=== PATIENT | female | born 1995 | race Two or more races ===

== ENCOUNTER 2023-05-27 11:26 | Inpatient (IN) | payer MEDICAID ==
[~2023-05-27] VITALS: Ht 175.3 cm; Wt 65.6 kg
[2023-05-27 12:23] LABS: BASOPHILS % (AUTO) 0.4 % (0.0-2.0); EOSINOPHILS % (AUTO) 1.9 % (1.0-6.0); HEMATOCRIT 38.2 % (36-46); HEMOGLOBIN 12.7 g/dL (12.0-16.0); LYMPHOCYTES # (AUTO) 2.2 K/uL (1.0-4.8); LYMPHOCYTES % (AUTO) 24.3 % (22.0-44.0); MEAN CORPUSCULAR HEMOGLOBIN 28.9 pg (26.0-34.0); MEAN CORPUSCULAR HGB CONC 33.1 G/dL (31.0-37.0); MEAN CORPUSCULAR VOLUME 87 fL (80-100); MONOCYTES # (AUTO) 0.5 K/uL (0.1-1.0); MONOCYTES % (AUTO) 5.6 % (2.0-9.0); NEUTROPHILS % (AUTO) 67.8 % (40.0-70.0); PLATELET COUNT (AUTO) 308 K/uL (150-450); RED BLOOD CELL COUNT(AUTO) 4.39 MIL/uL (4.00-5.20); RED CELL DISTRIBUTION WIDTH 15.8 % (11.5-14.5)
[2023-05-27 12:29] LABS: ANION GAP 6 mmol/L (8-16); CALCIUM, TOTAL 9.6 mg/dL (8.8-10.5); CARBON DIOXIDE 28 mmol/L (22-29); CHLORIDE 102 mmol/L (98-107); CREATININE 0.97 mg/dL (0.60-1.30); GLOMERULAR FILTR. RATE CALC > 60 mL/min (>60); GLUCOSE,RANDOM 119 mg/dL (70-110); POTASSIUM 4.1 mmol/L (3.5-5.1); SODIUM SERUM 136 mmol/L (136-145)
[2023-05-27 12:36] LABS: ALANINE AMINOTRANSFERASE 12 U/L (12-78); ALBUMIN 3.9 g/dL (3.4-5.0); ALKALINE PHOSPHATASE 50 U/L (46-116); ASPARTATE AMINOTRANSFERASE 14 U/L (15-37); BILIRUBIN,TOTAL 0.6 mg/dL (0.1-1.0)
[2023-05-27 12:41] LABS: COVID AG,FIA SOURCE NASOPHARYNGEAL
[2023-05-27] MEDS ORDERED: ZOLPIDEM TARTRATE 10 MG TABLET PO PRN (13:45)
[2023-05-27] MEDS ORDERED: LORazepam 2 MG TABLET PO PRN (13:45)
[2023-05-27] MEDS ORDERED: HALOPERIDOL 5 MG TABLET PO PRN (13:45)
[2023-05-27 21:56] LABS: APPEARANCE,URINE CLEAR (CLEAR); BILIRUBIN,URINE NEGATIVE (NEGATIVE); GLUCOSE, URINE (UA) NEGATIVE (NEGATIVE); KETONES,URINE NEGATIVE (NEGATIVE); LEUKOCYTE ESTERASE ,URINE NEGATIVE (NEGATIVE); NITRATE,URINE NEGATIVE (NEGATIVE); OCCULT BLOOD,URINE NEGATIVE (NEGATIVE); PROTEIN,URINE 30-70 mg/dL (NEGATIVE); SPECIFIC GRAVITIY, URINE 1.033 (1.003-1.030); UROBILINOGEN,URINE <=1.0 mg/dL (<=1.0)
[2023-05-27 22:06] LABS: AMPHET/METH SCREEN,URINE POSITIVE (NEGATIVE); BARBITURATE SCREEN, URINE NEGATIVE (NEGATIVE); BENZODIAZEPINES SCREEN,URINE NEGATIVE (NEGATIVE); CANNABINOID SCREEN,URINE NEGATIVE (NEGATIVE); COCAINE SCREEN,URINE NEGATIVE (NEGATIVE); METHADONE SCREEN, URINE NEGATIVE (NEGATIVE); OPIATE SCREEN,URINE NEGATIVE (NEGATIVE); PHENCYCLIDINE SCREEN,URINE NEGATIVE (NEGATIVE)
[2023-05-28 05:52] VITALS: BP 103/62; PULSE 62; RESP 18; TEMP 98.3; O2SAT 100
[2023-05-28] MEDS ORDERED: PNEUMOCOCCAL VACCINE POLYVALENT 0.5 ML VIAL [PPSV23] IM. ONE (06:15)
[2023-05-28] MEDS ORDERED: ALBUTEROL SULFATE HFA 90 MCG/PUFF 8 GM INHALER IH PRN (06:30)
[2023-05-28] MEDS ORDERED: LOPERAMIDE HCL 2 MG CAPSULE PO PRN (06:30)
[2023-05-28] MEDS ORDERED: GuaiFENesin/D-METHORPHAN [SUGAR-FREE] 200-20MG/10 ML SYRUP UDCUP PO PRN (06:30)
[2023-05-28] MEDS ORDERED: PETROLATUM,WHITE 28 GM JELLY TP PRN (06:30)
[2023-05-28] MEDS ORDERED: ONDANSETRON HCL 4 MG TABLET PO PRN (06:30)
[2023-05-28] MEDS ORDERED: DOCUSATE SODIUM 100 MG CAPSULE PO PRN (06:30)
[2023-05-28] MEDS ORDERED: MAG HYDROX/AL HYDROX/SIMETH ES 30 ML SUSPENSION UDCUP PO PRN (06:30)
[2023-05-28] MEDS ORDERED: ACETAMINOPHEN 325 MG TABLET PO PRN (06:30)
[2023-05-28] MEDS ORDERED: MAGNESIUM HYDROXIDE SUSPENSION 30 ML UDCUP PO PRN (06:30)
[2023-05-28] MEDS ORDERED: CloNIDine HCL 0.1 MG TABLET PO PRN (06:30)
[2023-05-28] MEDS ORDERED: NICOTINE 14 MG/24 HOUR PATCH TD PRN (06:30)
[2023-05-28] MEDS ORDERED: IBUPROFEN 400 MG TABLET PO PRN (06:30)
[2023-05-28 09:20] VITALS: BP 113/61; PULSE 91; RESP 16; TEMP 98.3; O2SAT 96
[2023-05-28] MEDS: SERTRALINE HCL 50 MG TABLET PO SCH (15:15)
[2023-05-28 20:21] VITALS: BP 99/59; PULSE 85; RESP 18; TEMP 97.8; O2SAT 98
[2023-05-28] MEDS: ARIPiprazole 5 MG TABLET PO SCH (20:59)
[2023-05-29 08:46] LABS: APPEARANCE,URINE TURBID (CLEAR); BILIRUBIN,URINE NEGATIVE (NEGATIVE); GLUCOSE, URINE (UA) NEGATIVE (NEGATIVE); KETONES,URINE NEGATIVE (NEGATIVE); LEUKOCYTE ESTERASE ,URINE SMALL (NEGATIVE); NITRATE,URINE NEGATIVE (NEGATIVE); OCCULT BLOOD,URINE NEGATIVE (NEGATIVE); PH,URINE 5.5 (5.0-8.0); PROTEIN,URINE TRACE mg/dL (NEGATIVE); SPECIFIC GRAVITIY, URINE 1.032 (1.003-1.030); UROBILINOGEN,URINE <=1.0 mg/dL (<=1.0)
[2023-05-29 08:49] VITALS: BP 105/65; PULSE 84; RESP 19; TEMP 98; O2SAT 100
[2023-05-29 08:53] LABS: CHOL/HDL RATIO 2.6 (3.9-5.7); THYROID STIMULATING HORMONE 0.27 uIU/mL (0.36-3.74)
[2023-05-29 09:04] LABS: AMORPHOUS SEDIMENT,UR Many /LPF (None Seen); BACTERIA,URINE None Seen /HPF (None Seen); RBC,URINE None Seen /HPF (0-2); SQUAMOUS EPITHELIAL CELL,UR Few /LPF (None Seen); WBC,URINE 0-2 /HPF (0-5)
[2023-05-29 09:13] LABS: AMPHET/METH SCREEN,URINE POSITIVE (NEGATIVE); BARBITURATE SCREEN, URINE NEGATIVE (NEGATIVE); BENZODIAZEPINES SCREEN,URINE NEGATIVE (NEGATIVE); CANNABINOID SCREEN,URINE NEGATIVE (NEGATIVE); COCAINE SCREEN,URINE NEGATIVE (NEGATIVE); METHADONE SCREEN, URINE NEGATIVE (NEGATIVE); OPIATE SCREEN,URINE NEGATIVE (NEGATIVE); PHENCYCLIDINE SCREEN,URINE NEGATIVE (NEGATIVE)
[2023-05-29 09:19] LABS: HEMOGLOBIN A1C 5.2 % (3.8-5.6)
[2023-05-29] MEDS: SERTRALINE HCL 50 MG TABLET PO SCH (09:28)
[2023-05-29 20:27] VITALS: BP 108/65; PULSE 85; RESP 18; TEMP 98; O2SAT 97
[2023-05-29] MEDS: ARIPiprazole 5 MG TABLET PO SCH (21:21)
[2023-05-30 08:57] VITALS: BP 112/65; PULSE 105; RESP 17; TEMP 97.2; O2SAT 96
[2023-05-30] MEDS: SERTRALINE HCL 50 MG TABLET PO SCH (09:18)
[2023-05-30 20:13] VITALS: BP 119/69; PULSE 89; RESP 17; TEMP 98.8
[2023-05-30] MEDS: ARIPiprazole 5 MG TABLET PO SCH (21:20)
[2023-05-31] MEDS: SERTRALINE HCL 50 MG TABLET PO SCH (08:45)
[2023-05-31 08:48] VITALS: BP 103/61; PULSE 62; RESP 18; TEMP 97.6; O2SAT 98
[2023-05-31] MEDS: ARIPiprazole 5 MG TABLET PO SCH (20:38)
[2023-05-31 21:43] VITALS: BP 100/60; PULSE 72; RESP 18; TEMP 98.5; O2SAT 100
[2023-06-01] MEDS: SERTRALINE HCL 50 MG TABLET PO SCH (08:43)
[2023-06-01 08:47] VITALS: BP 102/58; PULSE 67; RESP 17; TEMP 96.9; O2SAT 98
[2023-06-01] MEDS ORDERED: ARIP5TAB37 PO (09:20)
[2023-06-01] MEDS ORDERED: SERT-158 PO (09:21)
== END 2023-06-01 10:00 | disposition home or self-care (01) | DRG 751 ==
LOC: EMS 11:35 → B2S 05-28 01:00
PROVIDERS: ADMIT Psychiatry & Neurology Child & Adolescent Psychiatry; ATTEND Psychiatry & Neurology Child & Adolescent Psychiatry
DX: F33.2 Major depressive disorder, recurrent severe without psychotic features (principal); R45.851 Suicidal ideations; N39.0 Urinary tract infection, site not specified; Z20.822 Contact with and (suspected) exposure to COVID-19; R73.9 Hyperglycemia, unspecified; F41.9 Anxiety disorder, unspecified; F15.10 Other stimulant abuse, uncomplicated; F10.10 Alcohol abuse, uncomplicated; G47.00 Insomnia, unspecified; Z88.8 Allergy status to other drugs, medicaments and biological substances
CPT/HCPCS: 80053; 80061; 80307; 81001; 81003; 83036; 84443; 84703; 85025; 87081; 99285; G0480